=== PATIENT | female | born 1970 | race Two or more races ===

== ENCOUNTER 2020-04-05 01:28 | Inpatient (IN) | payer MEDICAID ==
[~2020-04-05] VITALS: Ht 152.4 cm; Wt 65.8 kg
[2020-04-05] MEDS ORDERED: SODIUM CHLORIDE 0.9% 1,000 ML IVB ONE (01:45)
[2020-04-05] MEDS ORDERED: ACETAMINOPHEN 325 MG TAB PO ONE (01:45)
[2020-04-05] MEDS ORDERED: METOCLOPRAMIDE HCL 5MG/ml INJ 2ml VIAL IV ONE (01:45)
[2020-04-05 02:28] LABS: Basophils # (auto) 0 10 ^3/uL (0-0.2); Basophils % (auto) 0.4 % (0.0-2.0); Eosinophils # (auto) 0 10 ^3/uL (0-0.8); Eosinophils % (auto) 0.3 % (0.0-7.0); Hematocrit 46.1 % (36.0-46.0); Hemoglobin 15.9 g/dL (12.2-16.2); Lymphocytes % (auto) 22.8 % (10.0-50.0); Mean Corpuscular Hemoglobin 30.3 pg (28.0-32.0); Mean Corpuscular Hgb Conc. 34.6 g/dL (32.0-36.0); Mean Corpuscular Volume 87.5 fL (80.0-100.0); Monocytes % (auto) 11.9 % (0.0-12.0); Neutrophils # (auto) 5.6 10 ^3/uL (1.6-8.6); Neutrophils % (auto) 64.6 % (37.0-80.0); Nucleated Red Blood Cells % 0.2 %; Platelet Count (auto) 270 10^3/uL (140-450); Red Blood Cells 5.26 10^6/uL (4.0-5.20); Red Cell Distribution Width 13.3 % (11.8-14.3); White Blood Cell 8.6 10^3/uL (4.4-10.8)
[2020-04-05] MEDS ORDERED: DexAMETHasone SOD PHOS 10MG/1ML VIAL INJ PO ONE (02:30)
[2020-04-05 02:48] LABS: Alanine Aminotransferase 25 U/L (13-56); Albumin 3.5 g/dL (3.4-5.0); Anion Gap 9 (5-15); Aspartate Aminotransferase 16 U/L (15-37); BUN/Creatinine Ratio 11.4; Blood Urea Nitrogen 8 mg/dL (7-18); Carbon Dioxide 24 mmol/L (21-32); Chloride 105 mmol/L (98-107); GFR African American 113 mL/min; GFR Non-African American 93 mL/min; Glucose 89 mg/dL (74-106); INR 0.93 (0.9-1.15); Partial Thromboplastin Time 27.4 sec (23.0-31.2); Potassium 3.4 mmol/L (3.5-5.1); Sodium 138 mmol/L (136-145)
[2020-04-05 02:52] LABS: Alkaline Phosphatase 110 U/L (45-117); Bilirubin, Total 0.4 mg/dL (0.2-1.0); Total Protein 8.3 g/dL (6.4-8.2)
[2020-04-05] MEDS ORDERED: ASPirin 81 mg TAB PO ONE (08:15)
[2020-04-05] MEDS ORDERED: NITROGLYCERIN 0.4 MG SL TAB SL PRN (09:00)
[2020-04-05] MEDS ORDERED: MORPHINE SULF INJ 2 MG/ML SYRINGE 1ML IV PRN (09:00)
[2020-04-05] MEDS ORDERED: HYDROcodone-ACET 5/325MG TAB PO PRN (09:00)
[2020-04-05] MEDS ORDERED: TEMAZEPAM 15 MG CAP PO PRN (09:00)
[2020-04-05] MEDS ORDERED: DOCUSATE SOD 100 MG CAP PO PRN (09:00)
[2020-04-05] MEDS ORDERED: ACETAMINOPHEN 325 MG TAB PO PRN (09:00)
[2020-04-05] MEDS ORDERED: ONDANSETRON HCL 4 MG/2 ML VIAL IV PRN (09:00)
[2020-04-05] MEDS ORDERED: LORazepam 2MG/ML-1ML VIAL IV PRN (09:15)
[2020-04-05] MEDS ORDERED: MULTIPLE VITAMIN TAB PO SCH (10:00)
[2020-04-05] MEDS ORDERED: ASCORBIC ACID 500 MG TAB PO SCH (10:00)
[2020-04-05] MEDS: FAMOTIDINE 20 MG TAB PO SCH ×2 (10:00→11:40)
[2020-04-05] MEDS ORDERED: ZINC SULFATE 220mg CAP or TAB PO SCH (10:00)
[2020-04-05] MEDS ORDERED: POTASSIUM CHL 20 Meq TABLET PO ONE (11:30)
[2020-04-05] MEDS ORDERED: THROAT LOZENGES(CEPASTAT) MT PRN (11:30)
[2020-04-05 12:09] VITALS: BP 153/91
== END 2020-04-05 14:15 | disposition left against medical advice (07) | DRG 199 ==
LOC: ER 01:30 → TELE 01:31
PROVIDERS: ADMIT Internal Medicine; ATTEND Internal Medicine
DX: I16.0 Hypertensive urgency (principal); E87.6 Hypokalemia; G93.41 Metabolic encephalopathy; J02.9 Acute pharyngitis, unspecified; I67.83 Posterior reversible encephalopathy syndrome; Z53.29 Procedure and treatment not carried out because of patient's decision for other reasons; R51.9 Headache, unspecified; Z20.822 Contact with and (suspected) exposure to COVID-19
CPT/HCPCS: 36415; 70450; 70551; 71045; 80053; 84484; 85025; 85610; 85652; 85730; 87426; 93005; 96361; 96374; G0378; J1100